=== PATIENT | female | born 1945 | race Caucasian/White ===

== ENCOUNTER 2017-03-04 09:39 | Emergency (ER) | payer MEDICARE, BC ==
[2017-03-04] MEDS ORDERED: Ondansetron INJ* 2 MG/ML VIAL IV ONE (10:38)
[2017-03-04] MEDS ORDERED: NS 0.9% 1000 ML* 2,000 ML IV ONE (10:38)
--- NOTE | 2017-03-04 10:45 | ED ---
Nausea/Vomiting/Diarrhea HPI - HPI Summary HPI Summary: Patient presents to the ED with CC of feeling "ill" for 9 days. Decreased appetite, constipation, nausea, weakness and body aches. Denies vomiting or diarrhea. She has been dehydrated in the past and states this feels similar. PMHx significant for CAD, diabetes, dehydration, hyperlipidemia, arthritis. Patient states she is on 14 medications total, yet has not taken them in 2 days d/t not eating. Son at bedside states she seems dehydrated. Denies neuro deficits including confusion, memory loss, PORTILLO, visual changes. Deibates medications include januvia and glipizide. She admits that she does not drink water. Last BM this morning stating it was "small [place]ell" and very hard. Prior to that it had been several days. Hx of bowel obstruction treated with abx and NPO status through domonique white. Denies passing gas for several days. She is able to keep food down and denies any burping. States she has had a fever off and on but has not checked. +insomnia. VS stable on arrival to the ED. She has had the flu vaccine this year. - History of Current Complaint Chief Complaint: EDGeneral Stated Complaint: GENERAL ILLNESS,NO BOWEL MOVEMENTS Time Seen by Provider: 03/04/17 09:59 Hx Obtained From: Patient ?: No Onset/Duration: Gradual Onset Timing: Constant Severity Initially: Moderate Severity Currently: Moderate Pain Intensity: 0 Pain Scale Used: 0-10 Numeric Character: Cramping - all over Aggravating Factor(s): Nothing Alleviating Factor(s): Nothing - Risk Factors Influenza Risk Factors: Age 65 y/o or Older Surgical Obstruction Risk Factor(s): Negative - Allergies/Home Medications Allergies/Adverse Reactions: Allergies Allergy/AdvReac Type Severity Reaction Status Date / Time No Known Allergies Allergy Verified 07/31/13 10:54 Home Medications: Home Medications Aspirin EC Low Dose* [Ecotrin EC Low Dose 81 MG*] 81 mg PO DAILY 03/04/17 [ History Confirmed 03/04/17] Atorvastatin* [Lipitor*] 40 mg PO QPM 03/04/17 [History Confirmed 03/04/17] Cholecalciferol TAB* [Vitamin D TAB*] 1,000 unit PO DAILY 03/04/17 [History Confirmed 03/04/17] Cyanocobalamin TAB* [Vitamin B12 TAB*] 1,000 mcg PO DAILY 03/04/17 [History Confirmed 03/04/17] Cyclosporine 0.05% OPHTH (NF) [Restasis 0.05% OPHTH] 1 drop BOTH EYES BID [History Confirmed 03/04/17] Esomeprazole(NF) [NEXium(NF)] 20 - 40 mg PO DAILY 03/04/17 [History Confirmed ] Ferrous Sulfate TAB* 325 mg PO DAILY 03/04/17 [History Confirmed 03/04/17] Gabapentin CAP(*) [Neurontin 300 CAP(*)] 900 - 1,200 mg PO BEDTIME 03/04/17 [ History Confirmed 03/04/17] LevoCETirizine TAB (NF) [Xyzal TAB (NF)] 5 mg PO DAILY PRN 03/04/17 [History Confirmed 03/04/17] Linaclotide (NF) [Linzess (NF)] 145 mcg PO DAILY PRN 03/04/17 [History Confirmed 03/04/17] Mometasone NASAL (NF) [Nasonex (NF)] 2 spray BOTH NARES DAILY 03/04/17 [History Confirmed 03/04/17] Pioglitazone TAB* [Actos TAB*] 30 mg PO QPM 03/04/17 [History Confirmed 03/04/17 ] Probiotic Product [Probiotic Multi-Enzyme] 1 tab PO DAILY 03/04/17 [History Confirmed 03/04/17] Rizatriptan (NF) [Maxalt-Regional Liaison (NF)] 10 mg PO Q2HR PRN MDD 20mg 03/04/17 [History Confirmed 03/04/17] SitaGLIPtin (NF) [Januvia (NF)] 100 mg PO DAILY 03/04/17 [History Confirmed ] glipiZIDE TAB.XL* [Glucotrol XL*] 10 mg PO BID 03/04/17 [History Confirmed 03/04] PMH/Surg Hx/FS Hx/Imm Hx Previously Healthy: Yes Endocrine/Hematology History: Reports: Hx Diabetes Cardiovascular History: Reports: Hx Hypercholesterolemia, Hx Hypertension Denies: Hx Pacemaker/ICD Respiratory History: Reports: Other Respiratory Problems/Disorders - current smoker GI History: Reports: Hx Gastroesophageal Reflux Disease History: Reports: Other Problems/Disorders - overactive bladder Denies: Hx Dialysis, Hx Renal Disease Musculoskeletal History: Reports: Hx Back Problems - chronic back pain Sensory History: Denies: Hx Hearing Aid Neurological History: Reports: Hx Migraine Psychiatric History: Reports: Hx Depression Denies: Hx Panic Disorder - Cancer History Hx Chemotherapy: No Hx Radiation Therapy: No - Surgical History Surgery Procedure, Year, and Place: 1984 [facility]- partial hysterectomy, [facility]- appendectomy, 04/16 [place]-back surgery, 06/15 [facility] (left) carpal tunnel, cataract bilat - Immunization History Hx Pertussis Vaccination: No Immunizations Up to Date: Yes Infectious Disease History: No Infectious Disease History: Denies: Traveled Outside the [place] in Last 30 Days - Social History Occupation: Disabled Lives: With Family Alcohol Use: None Hx Substance Use: No Substance Use Type: Reports: None Hx Tobacco Use: Yes Smoking Status (MU): Current Some Day Smoker Review of Systems Constitutional: Negative Negative: Fever, Chills, Fatigue Eyes: Negative Positive: Nasal Discharge Cardiovascular: Negative Respiratory: Negative Positive: Nausea Genitourinary: Negative Positive: no symptoms reported, see HPI Positive: Myalgia Positive: Weakness All Other Systems Reviewed And Are Negative: Yes Physical Exam Triage Information Reviewed: Yes Vital Signs On Initial Exam: Initial Vitals Temp Pulse Resp BP Pulse Ox 98.7 F 102 20 158/145 100 03/04/17 09:40 03/04/17 09:40 03/04/17 09:40 03/04/17 09:40 03/04/17 09:40 Vital Signs Reviewed: Yes Appearance: Positive: Well-Appearing, Obese Skin: Positive: Dry Head/Face: Positive: Normal Head/Face Inspection Eyes: Positive: EOMI, JASBIR, Conjunctiva Clear Neck: Positive: Supple, No Lymphadenopathy Respiratory/Lung Sounds: Positive: Clear to Auscultation, Breath Sounds Present Cardiovascular: Positive: Normal Musculoskeletal: Positive: Strength/ROM Intact Neurological: Positive: Speech Normal Psychiatric: Positive: Normal, Affect/Mood Appropriate AVPU Assessment: Alert - [place] Coma Scale Coma Scale Total: 15 Diagnostics - Vital Signs Vital Signs Temp Pulse Resp BP Pulse Ox 03/04/17 10:11 99 100 03/04/17 10:09 141/87 03/04/17 09:40 98.7 F 102 20 158/145 100 - Laboratory Result Diagrams: 03/04/17 10:49 03/04/17 10:49 Lab Statement: Any lab studies that have been ordered have been reviewed, and results considered in the medical decision making process. Naus/Vom/Diarrhea Course/Dx - Course Course Of Treatment: During the course of treatment, patient is given 2L fluids , zofran and abdominal and chest xray completed. Flu negative. Labs all WNL. ALL WNL except abdominal xray showing moderate amount of stool. She is given mag citrate for relief. She is to follow up with Brittany next week. She is encouraged plenty of fluids and bland diet until improvement. UA negative. - Differential Dx/Diagnosis Differential Diagnoses - Female: Bowel Obstruction, Constipation Provider Diagnoses: Constipation; Dehydration Condition At Discharge: Stable Discharge - Discharge Plan Condition: Stable Disposition: HOME Patient Education Materials: Magnesium Citrate (By mouth), Constipation (ED), Dehydration (ED) Referrals: Silvino Soto MD [Primary Care Provider] - Additional Instructions: Please follow up with Dr. Soto. As discussed, lab work, chest xray, flu was OK abdominal xray appears to show you have a moderate-severe amount of stool For the constipation, mag citrate has been given to you Take 1/2 the bottle now - without a BM in 6 hours, please take the other 1/2 the bottle Drink plenty of water [place] diet including toast, applesauce, chicken soup and crackers.
[2017-03-04 11:07] LABS: Hematocrit 40 % (35-47); Hemoglobin 13.7 g/dl (12.0-16.0); Mean Corpuscular HGB Conc 34 g/dl (31-36); Mean Corpuscular Hemoglobin 31 pg (27-31); Mean Corpuscular Volume 91 fL (80-97); Mean Platelet Volume 8 um3 (7.4-10.4); Red Blood Count 4.39 10^6/ul (4.0-5.4); Red Cell Distribution Width 14 % (10.5-15); White Blood Count 6.5 10^3/ul (3.5-10.8)
[2017-03-04 11:18] LABS: ALT 12 U/L (7-52); AST 15 U/L (13-39); Albumin 4.2 g/dL (3.2-5.2); Alkaline Phosphatase 63 U/L (34-104); Anion Gap 7 mmol/L (2-11); Blood Urea Nitrogen 25 mg/dL (6-24); C Reactive Protein < 1.00 mg/L (< 5.00); CO2 Carbon Dioxide 27 mmol/L (22-32); Calcium 9.7 mg/dL (8.6-10.3); Chloride 102 mmol/L (101-111); Creatine Kinase 34 U/L (10-223); EGFR African American 54.6 (>60); EGFR Non-African American 42.5 (>60); Globulin 2.9 g/dL (2-4); Glucose 192 mg/dL (70-100); Lipase 26 U/L (11.0-82.0); Magnesium 2.1 mg/dL (1.9-2.7); Potassium 3.6 mmol/L (3.5-5.0); Sodium 136 mmol/L (133-145); Total Protein 7.1 g/dL (6.4-8.9); Troponin I 0.01 ng/mL (<0.04)
--- NOTE | 2017-03-04 11:45 | RAD ---
INDICATION: Chest pain. COMPARISON: Comparison is made with a prior chest x-ray study from December 25, 2006. TECHNIQUE: A portable view of the chest was obtained. FINDINGS: Cardiac and mediastinal contours appear to be within normal limits. The lungs are clear. No pleural effusion is seen. IMPRESSION: NO EVIDENCE FOR ACUTE DISEASE.
--- NOTE | 2017-03-04 11:45 | RAD ---
Indication: Constipation. Generalized illness. Comparison: August 12, 2014 CT. Technique: Upright and supine abdomen views. Report: Negative for free air beneath the diaphragm. Moderately large volume of stool within the colon without evidence for significant rectal distention with stool. No dilated bowel loops evident. Innumerable pelvic phleboliths. No suspicious calcifications or mass effect. Unremarkable soft tissue contours. Atherosclerotic calcification at the aortic bifurcation and proximal common iliac arteries. Clear lung bases. IMPRESSION: No acute abdominal pelvic pathologic process evident. Moderately large volume of stool within the colon without evidence for bowel obstruction.
[2017-03-04 12:39] VITALS: BP 127/69
[2017-03-04] MEDS ORDERED: Magnesium CITRATE* 300 ML BTL PO ONE (12:51)
[2017-03-04 12:56] LABS: Urine Bilirubin Negative (Negative); Urine Glucose 1+(50 mg/dL) (Negative); Urine Nitrite Negative (Negative)
== END 2017-03-04 13:09 | disposition home or self-care (01) ==
LOC: ED 09:39
DX: E86.0 Dehydration (principal); K59.00 Constipation, unspecified; F17.200 Nicotine dependence, unspecified, uncomplicated; E11.9 Type 2 diabetes mellitus without complications; E78.00 Pure hypercholesterolemia, unspecified; I10 Essential (primary) hypertension; F32.9 Major depressive disorder, single episode, unspecified
CPT/HCPCS: 36415; 71010; 74020; 80053; 81003; 82550; 83605; 83690; 83735; 84484; 85025; 86140; 87502; 96360; 96374; 99282; A9270-GY; J2405

== ENCOUNTER 2018-04-12 11:11 | Emergency (ER) | payer MEDICARE, BC ==
--- NOTE | 2018-04-12 12:30 | UC ---
Throat Pain/Nasal [place] HPI - HPI Summary HPI Summary: 73 yo female presents with sinus pain/pressure/congestion, dry cough, fatigue, body aches, and sore throat for the last 3-4 days. Has not been taking anything OTC for her symptoms. Has felt feverish, but has not taken her temperature. Denies SOB, chest pain, n/v. She is still smoking daily. - History of Current Complaint Stated Complaint: SINUS COMPLAINT,BI LAT EAR PAIN Time Seen by Provider: 04/12/18 12:30 Hx Obtained From: Patient Onset/Duration: Gradual Onset Severity: Moderate Pain Intensity: 7 Pain Scale Used: 0-10 Numeric - Allergies/Home Medications Allergies/Adverse Reactions: Allergies Allergy/AdvReac Type Severity Reaction Status Date / Time No Known Allergies Allergy Verified 07/31/13 10:54 Home Medications: Home Medications Insulin Glargine,Hum.[email or web address].anlog [Lantus Solostar 5x3 ML PENS] 1 each INJ DAILY [History Confirmed 04/12/18] Pregabalin CAP(*) [Lyrica CAP(*)] 50 mg PO DAILY 04/12/18 [History Confirmed 08/24] PMH/Surg Hx/FS Hx/Imm Hx Endocrine History: Diabetes, Dyslipidemia GI/ History: Gastroesophageal Reflux Neurological History: Migraine - Surgical History Surgical History: Yes Surgery Procedure, Year, and Place: 1984 [facility] [place], [facility] [place]- appendectomy, 04/16 [place]-back surgery, 06/15 [facility] (left) carpal tunnel, cataract bilat - Family History Known Family History: Positive: Unknown - Social History Lives: With Family Alcohol Use: None Substance Use Type: None Smoking Status (MU): Current Some Day Smoker Review of Systems All Other Systems Reviewed And Are Negative: Yes Constitutional: Positive: Fatigue, Other - Body aches Skin: Positive: Negative Eyes: Positive: Negative ENT: Positive: Nasal Discharge, Sinus Congestion, Sinus Pain/Tenderness Respiratory: Positive: Cough Cardiovascular: Positive: Negative Gastrointestinal: Positive: Negative Neurovascular: Positive: Negative Neurological: Positive: Negative Psychological: Positive: Negative Physical Exam - Summary Physical Exam Summary: GENERAL: NAD. WDWN. No pain distress. SKIN: No rashes, sores, lesions, or open wounds. HEENT: Head: AT/NC Eyes: EOM intact. Conjunctiva clear without inflammation or discharge. Ears: Hearing grossly normal. TMs intact, no bulging, erythema, or edema. Nose: Nasal mucosa moderately swollen and erythematous without discharge. TTP maxillary and frontal sinus. Positive post nasal drip Throat: Posterior oropharynx without exudates, erythema, or tonsillar enlargement. Uvula midline. NECK: Supple. Nontender. No lymphadenopathy. CHEST: Mild wheezing throughout. No r/r. No accessory muscle use. Breathing comfortably and in no distress. CV: RRR. Without m/r/g. Pulses intact. NEURO: Alert. PSYCH: Age appropriate behavior. Triage Information Reviewed: Yes Vital Signs: Vital Signs: Temp Pulse Resp BP Pulse Ox 97.6 F 102 24 142/81 100 04/12/18 12:29 04/12/18 12:29 04/12/18 12:29 04/12/18 12:29 04/12/18 12:29 Laboratory Tests 04/12/18 12:43 Influenza A (Rapid) Negative Influenza B (Rapid) Negative Vital Signs Reviewed: Yes Throat Pain/Nasal Course/Dx - Course Course Of Treatment: CXR: IMPRESSION: No radiographic evidence of acute cardiopulmonary disease. Flu negative. Suspect sinusitis and bronchitis. Given her comorbidities and current smoking status - will treat with anbx. - Differential Dx/Diagnosis Provider Diagnosis: Sinusitis, Bronchitis Discharge - Sign-Out/Discharge Documenting (check all that apply): Patient Departure All imaging exams completed and their final reports reviewed: Yes - Discharge Plan Condition: Stable Disposition: HOME Prescriptions: Amoxicillin PO (*) [Amoxicillin 875 MG (*)] 875 mg PO BID #14 tab Patient Education Materials: Sinusitis (ED), Acute Bronchitis (ED) Referrals: Vincent Love DO [Primary Care Provider] - Additional Instructions: If you develop a fever, shortness of breath, chest pain, new or worsening symptoms - please call your PCP or go to the ED. Your blood pressure was high at todays visit. Please see your primary provider within 4 weeks for recheck and re-evaluation. - Billing Disposition and Condition Condition: STABLE Disposition: Home
[2018-04-12 12:32] VITALS: BP 142/81
== END 2018-04-12 13:16 | disposition home or self-care (01) ==
LOC: UCCORT 11:11
DX: J32.9 Chronic sinusitis, unspecified (principal); J40 Bronchitis, not specified as acute or chronic; F17.210 Nicotine dependence, cigarettes, uncomplicated; E11.9 Type 2 diabetes mellitus without complications; Z79.4 Long term (current) use of insulin
CPT/HCPCS: 71046; 99212; G0463

== ENCOUNTER 2020-08-10 12:23 | Observation (INO) ==
[2020-08-10 12:54] LABS: ABS Basophils 0.1 10^3/ul (0-0.2); ABS Eosinophils 0.1 10^3/ul (0-0.6); ABS Lymphocytes 2.1 10^3/ul (1.0-4.8); ABS Monocytes 0.7 10^3/ul (0-0.8); ABS Neutrophils 6.4 10^3/ul (1.5-7.7); Eosinophil % 0.9 %; Hematocrit 40 % (35-47); Hemoglobin 13.4 g/dL (12.0-16.0); Lymphocyte % 22.4 %; Mean Corpuscular HGB Conc 34 g/dL (31-36); Mean Corpuscular Hemoglobin 30 pg (27-31); Mean Corpuscular Volume 89 fL (80-97); Mean Platelet Volume 8.1 fL (7.4-10.4); Platelet Count 236 10^3/uL (150-450); Red Blood Count 4.52 10^6 /uL (3.70-4.87); Red Cell Distribution Width 15 % (10-15); White Blood Count 9.4 10^3/uL (3.5-10.8)
[2020-08-10 13:00] LABS: INR 1.09 (0.82-1.09)
[2020-08-10 13:13] LABS: Troponin I 0.01 ng/mL (<0.03)
[2020-08-10 13:31] LABS: Albumin 4.6 g/dL (3.2-5.2); Albumin/Globulin Ratio 1.6 (1-3); Calcium 9.8 mg/dL (8.6-10.3); EGFR African American 61.5 (>60); EGFR Non-African American 50.8 (>60); Globulin 2.8 g/dL (2-4); Potassium 4.7 mmol/L (3.5-5.0); Total Bilirubin 0.5 mg/dL (0.2-1.0); Total Protein 7.4 g/dL (6.4-8.9)
[2020-08-10 15:58] LABS: Troponin I 0.03 ng/mL (<0.03)
[2020-08-10 16:49] LABS: C Reactive Protein 2.4 mg/L (<8.01)
[2020-08-10] MEDS ORDERED: Dextrose 50% Syringe 50 ml 25 GM/50 ML SYRINGE IV PUSH PRN (17:09)
[2020-08-10 17:28] LABS: HDL Cholesterol 57.2 mg/dL
[2020-08-10] MEDS ORDERED: CMCS: LINACLOTIDE 72 MCG CAP (NF) PO PRN (17:40)
[2020-08-10 17:58] LABS: TSH Ultra Thyroid Stim Horm 0.81 mcIU/mL (0.34-5.60)
[2020-08-10] MEDS: Enoxaparin 40 MG/0.4 ML SYR SUBCUT SCH (18:06)
[2020-08-10] MEDS: Insulin GLARGINE 100 un/ml 10 ml VIAL SUBCUT SCH (18:09)
[2020-08-10 19:08] LABS: Troponin I 0.04 ng/mL (<0.03)
[2020-08-11 02:55] LABS: Troponin I 0.04 ng/mL (<0.03)
[2020-08-11] MEDS ORDERED: Perflutren Lipid Microsphere 3 ML VIAL ONE (07:58)
[2020-08-11] MEDS ORDERED: Cholecalciferol (VIT D3) 1,000 unit TAB PO SCH (09:00)
[2020-08-11] MEDS: Nicotine PATCH 7 MG/24 HR PATCH TRANSDERM SCH ×2 (10:17→14:37)
[2020-08-11] MEDS ORDERED: Midazolam 5 mg/5 ml VIAL 1 mg/ml 5 ml VIAL (5 mg) ONE (10:54)
[2020-08-11] MEDS ORDERED: Heparin 1,000 UNIT/ML 10 ml (10,000 UNITS) CATHLAB/DIALYSIS ONE (10:54)
[2020-08-11] MEDS ORDERED: VERAPAMIL 2.5 MG/ML 2 ML VIAL ** 5 mg/2 ml ONE (10:54)
[2020-08-11] MEDS ORDERED: fentaNYL 100 mcg/2 ml 50 MCG/ML VIAL ONE (10:54)
[2020-08-11] MEDS ORDERED: Iodixanol 320 (CONTRAST) 100 ML SDV ONE (10:55)
[2020-08-11] MEDS ORDERED: Heparin 2 UNITS/ML 1000 mls 2,000 ML IV ONE (10:55)
[2020-08-11] MEDS ORDERED: nitroGLYCERIN DRIP 25,000 MCG/250 ML BTL ONE (10:55)
[2020-08-11] MEDS ORDERED: Lidocaine 1% VIAL 10 MG/ML VIAL ONE (10:56)
[2020-08-11] MEDS: Insulin GLARGINE 100 un/ml 10 ml VIAL SUBCUT SCH (17:56)
[2020-08-11] MEDS: Enoxaparin 40 MG/0.4 ML SYR SUBCUT SCH (17:57)
[2020-08-11 18:09] VITALS: BP 104/61
== END 2020-08-11 20:14 | disposition short-term general hospital (02) ==
LOC: ED 12:23 → MEDTELE 12:23
PROVIDERS: ADMIT Internal Medicine; ATTEND Internal Medicine